=== PATIENT | female | born 1960 | race Caucasian/White ===

== ENCOUNTER 2019-05-19 10:14 | Emergency (ER) | payer OTHER ==
--- NOTE | 2019-05-19 11:22 | RAD REPORT ---
EXAM DESCRIPTION: RAD - Knee Right 3 View - 05/19/2019 11:09 am CLINICAL HISTORY: PAIN COMPARISON: No comparisons FINDINGS: Advanced osteoarthritis is present in all 3 joint compartments. Hardware is noted related to previous ACL repair. A small suprapatellar joint effusion. No fracture evident.
--- NOTE | 2019-05-19 11:32 | ER ---
Nurse's Notes [facility] Name: Kerri Bonilla Age: 59 yrs Sex: Female : 1960 Arrival Date: 05/19/2019 Time: 10:19 Bed 14 Private MD: Diagnosis: Effusion, right knee;Unspecified internal derangement of right knee Presentation: 05/19 10:30 Presenting complaint: Severe right knee pain upon waking today. Reports the knee "felt hb funny" after playing on floor with dog a couple weeks ago, has been having intermittent pain ever since. Hx of ACL and meniscus repair in 1985. Transition of care: patient was not received from another setting of care. Onset of symptoms was May 19, 2019. Risk Assessment: Do you want to hurt yourself or someone else? Patient reports no desire to harm self or others. Initial Sepsis Screen: Does the patient meet any 2 criteria? No. Patient's initial sepsis screen is negative. Does the patient have a suspected source of infection? No. Patient's initial sepsis screen is negative. Care prior to arrival: Medication(s) given: Aleve at 0830 today. 10:30 Method Of Arrival: Ambulatory hb 10:30 Acuity: ADRIEN 4 hb Historical: - Allergies: 10:33 Codeine; hb - Immunization history:: Adult Immunizations up to date. - Social history:: Smoking status: Patient/guardian denies using tobacco. - Ebola Screening: : No symptoms or risks identified at this time. - Family history:: not pertinent. - Hospitalizations: : No recent hospitalization is reported. Screenin:00 Abuse screen: Denies threats or abuse. Denies injuries from another. Nutritional ph screening: No deficits noted. Tuberculosis screening: No symptoms or risk factors identified. Fall Risk None identified. Assessment: 11:00 General: Appears in no apparent distress. comfortable, slender, well groomed, Behavior ph is calm, cooperative, appropriate for age. Pain: Complains of pain in right knee. Neuro: Level of Consciousness is awake, alert, obeys commands, Oriented to person, place, time, situation. Cardiovascular: Capillary refill < 3 seconds in bilateral fingers Patient's skin is warm and dry. Respiratory: Airway is patent Respiratory effort is even, unlabored. Derm: Skin is intact, is healthy with good turgor, Skin is pink, warm \\T\\ dry. Musculoskeletal: Circulation, motion, and sensation intact. Range of motion: limited in right knee. 12:05 Reassessment: Patient appears in no apparent distress at this time. Patient and/or ph family updated on plan of care and expected duration. Pain level reassessed. Patient is alert, oriented x 3, equal unlabored respirations, skin warm/dry/pink. D/C pending delivery of Xray films. Vital Signs: 10:33 BP 150 / 89; Pulse 82; Resp 16; Temp 97.8(TE); Pulse Ox 100% on R/A; Weight 69.4 kg; hb Height 5 ft. 6 in. (167.64 cm); Pain 2/10; 10:33 Body Mass Index 24.69 (69.40 kg, 167.64 cm) hb ED Course: 10:19 Patient arrived in ED. mr 10:32 Triage completed. hb 10:33 Arm band placed on. hb 10:34 Glenn Regalado MD is Attending Physician. rn 10:37 Gloria Negrete, LEW is Primary Nurse. ph 11:00 Patient has correct armband on for positive identification. Bed in low position. Call ph light in reach. Side rails up X 1. Pulse ox on. NIBP on. Door closed. Noise minimized. Warm blanket given. 11:11 XRAY Knee RIGHT 3 view In Process Unspecified. EDMS 11:31 Krish Urbina MD is Referral Physician. rn 12:45 No provider procedures requiring assistance completed. Patient did not have IV access ph during this emergency room visit. Administered Medications: No medications were administered Outcome: 11:31 Discharge ordered by . rn 12:47 Patient left the ED. ph Signatures: Dispatcher [employer] EDKY Michael Leandra rubio Glenn Regalado MD MD rn Hall, Patricia, RN RN ph Maggie Steele RN RN
--- NOTE | 2019-05-19 11:33 | EDPHYS ---
Physician Documentation [facility] Name: Kerri Bonilla Age: 59 yrs Sex: Female : 1960 Arrival Date: 05/19/2019 Time: 10:19 Bed 14 Private MD: ED Physician Glenn Regalado HPI: 05/19 11:02 This 59 yrs old Female presents to ER via Ambulatory with complaints of Knee rn Pain. 11:02 The patient presents with pain. The complaints affect the right knee. rn 11:02 Onset: The symptoms/episode began/occurred this morning. Modifying factors: The rn symptoms are alleviated by remaining still, the symptoms are aggravated by movement, weight bearing, bending knee. Associated signs and symptoms: The patient has no apparent associated signs or symptoms, Pertinent negatives calf tenderness, fever, swelling, warmth, weakness. Severity of symptoms: At their worst the symptoms were moderate, in the emergency department the symptoms have improved. The patient has experienced similar episodes in the past. Reports right knee pain, was playing with dog on floor recently, "felt off", but no immediate pain, woke up with worse pain today, sharp/throbbing, worse with movement. No fever. No hx of gout. No swelling. Better with brace. And now improving on its own. Has appt with ortho in 3 days but since has had surgery on both knees in past is concerned something may be off. . Historical: - Allergies: 10:33 Codeine; hb - Immunization history:: Adult Immunizations up to date. - Social history:: Smoking status: Patient/guardian denies using tobacco. - Ebola Screening: : No symptoms or risks identified at this time. - Family history:: not pertinent. - Hospitalizations: : No recent hospitalization is reported. ROS: 11:02 Constitutional: Negative for fever, chills, and weight loss, Back: Negative for injury rn and pain, MS/Extremity: + right knee pain Skin: Negative for injury, rash, and discoloration, Neuro: Negative for weakness, numbness, tingling Exam: 11:02 Constitutional: This is a well developed, well nourished patient who is awake, alert, rn and in no acute distress. MS/ Extremity: Pulses equal, no cyanosis. Neurovascular intact. Full, normal range of motion. Equal circumference. No laxity appreciated with anterior/posterior tibial pressure, no focal tenderness, no locking or catching. No appreciable effusion. No erythema or warmth. Vital Signs: 10:33 BP 150 / 89; Pulse 82; Resp 16; Temp 97.8(TE); Pulse Ox 100% on R/A; Weight 69.4 kg; hb Height 5 ft. 6 in. (167.64 cm); Pain 2/10; 10:33 Body Mass Index 24.69 (69.40 kg, 167.64 cm) hb MDM: 10:34 Patient medically screened. rn 11:29 Differential diagnosis: tendonitis, internal derangement, effusion. Data reviewed: rn vital signs, nurses notes, radiologic studies, plain films, and as a result, I will discharge patient. Counseling: I had a detailed discussion with the patient and/or guardian regarding: the historical points, exam findings, and any diagnostic results supporting the discharge/admit diagnosis, radiology results, the need for outpatient follow up, to return to the emergency department if symptoms worsen or persist or if there are any questions or concerns that arise at home. Special discussion: I discussed with the patient/guardian in detail that at this point there is no indication for admission to the hospital. It is understood, however, that if the symptoms persist or worsen the patient needs to return immediately for re-evaluation. Further emergent ED testing is not indicated at this point in time. I discussed with the patient/guardian in detail the need to arrange with the PCP or specialist further outpatient testing, MRI, Based on the history and exam findings, there is no indication for further emergent testing or inpatient evaluation. I discussed with the patient/guardian the need to see the orthopedic surgeon for further evaluation of the symptoms. ED course: Contacted Dr. Aburto to try to get outpt MRI ordered for patient prior to ortho appt, states unable to. Recommend outpt MRI knee and ortho f/u. Given crutches. Has her own knee brace. . 11:38 ED course: States has appt with [facility] this Saturday. 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 . 05/19 10:45 Order name: XRAY Knee RIGHT 3 view; Complete Time: 11:32 rn 05/19 11:24 Order name: Crutches; Complete Time: 12:06 rn Administered Medications: No medications were administered Disposition: 05/19/19 11:31 Discharged to Home. Impression: Effusion, right knee, Unspecified internal derangement of right knee. - Condition is Stable. - Discharge Instructions: Knee Effusion. - Medication Reconciliation Form, Thank You Letter, Antibiotic Education, Prescription Opioid Use form. - Follow up: Krish Urbina MD; When: As needed; Reason: Recheck today's complaints, Re-evaluation by your physician. - Problem is an ongoing problem. - Symptoms have improved. Signatures: Dispatcher [employer] EDGA Glenn Regalado MD MD rn Gloria Negrete RN RN Maggie Steele RN RN Corrections: (The following items were deleted from the chart) 12:47 11:31 05/19/2019 11:31 Discharged to Home. Impression: Effusion, right knee; ph Unspecified internal derangement of right knee. Condition is Stable. Forms are Medication Reconciliation Form, Thank You Letter, Antibiotic Education, Prescription Opioid Use. Follow up: Krish Urbina; When: As needed; Reason: Recheck today's complaints, Re-evaluation by your physician. Problem is an ongoing problem. Symptoms have improved. rn
[2019-05-19 12:52] VITALS: BP 150/89; TEMP 97.8; O2SAT 100
== END 2019-05-19 12:47 | disposition home or self-care (01) ==
LOC: ER 10:14
DX: M25.461 Effusion, right knee (principal); M23.91 Unspecified internal derangement of right knee; Z88.6 Allergy status to analgesic agent
CPT/HCPCS: 99283